=== PATIENT | male | born 1970 | race Two or more races ===

== ENCOUNTER 2022-05-16 19:28 | Emergency (ER) | payer SELFPAY ==
[~2022-05-16] VITALS: Ht 170.2 cm; Wt 79.4 kg
[2022-05-16 21:25] VITALS: BP 128/72
== END 2022-05-16 21:53 | disposition home or self-care (01) ==
LOC: ER 19:28
DX: Z02.83 Encounter for blood-alcohol and blood-drug test (principal); Z86.73 Personal history of transient ischemic attack (TIA), and cerebral infarction without residual deficits